=== PATIENT | male | born 1950 | race African-American/Black ===

== ENCOUNTER 2018-10-29 09:34 | Outpatient (CLI) | payer OTHER ==
[~2018-10-29 09:34] MED LIST: HTN
== END 2018-10-29 16:55 | disposition home or self-care (01) ==
LOC: MRD 09:34
DX: I77.810 Thoracic aortic ectasia (principal); M47.814 Spondylosis without myelopathy or radiculopathy, thoracic region
CPT/HCPCS: 71275; Q9967